=== PATIENT | male | born 1975 | race Caucasian/White ===

== ENCOUNTER 2025-01-07 12:40 | Outpatient (CLI) | payer BC, SELFPAY ==
--- NOTE | 2025-01-07 13:57 | P.ANES_ITS ---
Anesthesia Charges Start Date/Time Anesthesia Start Date: 01/07/25 Anesthesia Start Time: 13:15 Stop Date/Time Anesthesia Stop Date: 01/07/25 Anesthesia Stop Time: 14:00 Coding CPT Codes CPT Codes: ANES LWR INTST NDSC NOS - [id number] ([id number]) P3 - PATIENT W/SEVERE SYS DISEASE, QK - BOOKKEEPER ASSISTANT 2-4 CNCRNT ANES PROC, QX - CREDIT CHECKER SVC W/ MD MED DIRECTION
--- NOTE | 2025-01-07 13:57 | W.ANESCHARGE ---
Anesthesia Charges Start Date/Time Anesthesia Start Date: 01/07/25 Anesthesia Start Time: 13:15 Stop Date/Time Anesthesia Stop Date: 01/07/25 Anesthesia Stop Time: 14:00 Coding CPT Codes CPT Codes: ANES LWR INTST NDSC NOS - [id number] ([id number]) P3 - PATIENT W/SEVERE SYS DISEASE, QK - INDUSTRIAL ORGANIZATION MANAGER 2-4 CNCRNT ANES PROC, QX - ZINC MINER BLASTING SVC W/ MD MED DIRECTION
--- NOTE | 2025-01-07 14:01 | P.ANES_ITS ---
Anesthesia Charges Start Date/Time Anesthesia Start Date: 01/07/25 Anesthesia Start Time: 13:15 Stop Date/Time Anesthesia Stop Date: 01/07/25 Anesthesia Stop Time: 14:00 Coding CPT Codes CPT Codes: ANES LWR INTST NDSC NOS - [id number] ([id number]) P3 - PATIENT W/SEVERE SYS DISEASE, QK - CONSTRUCTION TEACHER 2-4 CNCRNT ANES PROC, QX - INSURANCE BROKER SVC W/ MD MED DIRECTION
--- NOTE | 2025-01-07 14:01 | W.ANESCHARGE ---
Anesthesia Charges Start Date/Time Anesthesia Start Date: 01/07/25 Anesthesia Start Time: 13:15 Stop Date/Time Anesthesia Stop Date: 01/07/25 Anesthesia Stop Time: 14:00 Coding CPT Codes CPT Codes: ANES LWR INTST NDSC NOS - [id number] ([id number]) P3 - PATIENT W/SEVERE SYS DISEASE, QK - SHIP LOADER 2-4 CNCRNT ANES PROC, QX - CAMP ASSISTANT SVC W/ MD MED DIRECTION
== END 2025-01-07 12:41 | disposition home or self-care (01) ==
LOC: OP CLINIC 12:43
PROVIDERS: PCP Family Medicine; Visit Provider Internal Medicine Gastroenterology
DX: Z12.11 Encounter for screening for malignant neoplasm of colon (principal); D12.0 Benign neoplasm of cecum; D12.5 Benign neoplasm of sigmoid colon; D12.8 Benign neoplasm of rectum
CPT/HCPCS: 00811; 00812; 45380; 45381; 45385; 88305; J2704